=== PATIENT | male | born 1990 | race Caucasian/White ===

== ENCOUNTER 2016-07-25 14:20 | Emergency (ER) | payer OTHER ==
[~2016-07-25] VITALS: Ht 193 cm; Wt 80.3 kg
--- NOTE | 2016-07-25 15:17 | ED PSYCHIATRIC COMPLAINT ---
History of Present Illness General Chief Complaint: Psychiatric Related Complaint Stated Complaint: SI Source: patient, family, old records Exam Limitations: clinical condition Vital Signs & Intake/Output Vital Signs & Intake/Output Vital Signs Date Time Temp Pulse Resp B/P Pulse O2 O2 Flow FiO2 Ox Delivery Rate 07/25 1432 98.6 85 18 137/80 98 Room Air Allergies Coded Allergies: No Known Allergies (07/25/16) Reconcile Medications Cetirizine HCl (Zyrtec) (Unknown Strength) TABLET (Unknown Dose) PRN PRN ALLERGIES (Reported) Melatonin (Unknown Strength) TABLET (Unknown Dose) QPM SLEEP (Reported) Sertraline HCl (Zoloft) 100 MG TABLET 1 TAB PO DAILY MENTAL HEALTH (Reported) Triage Note: RECEIVED 25 YO MALE WITH HX OF AUTISM WITH FATHER. ACCORDING TO FATHER, PT HAS BEEN DEPRESSED FOR A FEW MONTHS AND MADE A SUICIDE STATEMENT A FEW WEEKS AGO AND MADE A SUICIDAL STATEMENT YESTERDAY TO ASSOCIATE AT [facility]. PT DENIES WANTING TO , DIRECTLY EXPRESSED BY PT. Triage Nurses Notes Reviewed? yes Onset: several months Duration: week(s):, constant, continues in ED Timing: recent history Severity: moderate Associated Symptoms: anxiety, impaired concentration, injury HPI: Several is prior to admission patient has had decreased appetite increasing sleep anhedonia and sleep disturbance. Several days prior to admission patient has had thoughts of hurting himself because of family discord and feels responsible. He denies fever chills nausea vomiting diarrhea abdominal pain chest pain shortness breath headache dysuria rash bleeding suicidal ideation homicidal ideation hallucination. (ADRIANA HANSON MD) Past History Travel History Traveled to [place] past 21 day No Medical History Any Pertinent Medical History? see below for history Neurological: NONE EENT: NONE Cardiovascular: NONE Respiratory: NONE Gastrointestinal: NONE Hepatic: NONE Renal: NONE Musculoskeletal: NONE Psychiatric: AUTISM Endocrine: NONE Blood Disorders: NONE Cancer(s): NONE Surgical History Surgical History: non-contributory Psychosocial History What is your primary language Mexican Tobacco Use: Never used Family History Hx Contributory? No (ADRIANA HANSON MD) Review of Systems Review of Systems Constitutional: Reports: no symptoms. EENTM: Reports: no symptoms. Respiratory: Reports: no symptoms. Cardiovascular: Reports: no symptoms. GI: Reports: no symptoms. Genitourinary: Reports: no symptoms. Musculoskeletal: Reports: no symptoms. Skin: Reports: no symptoms. Neurological/Psychological: Reports: see HPI, anxiety, cognitive dysfunction, confusion, depressed, emotional problems. Hematologic/Endocrine: Reports: no symptoms. Immunologic/Allergic: Reports: no symptoms. All Other Systems: Reviewed and Negative (ADRIANA HANSON MD) Physical Exam Physical Exam General Appearance: well developed/nourished, alert, awake, anxious, mild distress Head: atraumatic Eyes: Bilateral: PERRL, EOMI. Ears, Nose, Throat: normal pharynx, normal ENT inspection, hearing grossly normal Neck: normal inspection, supple Respiratory: normal breath sounds Cardiovascular: regular rate/rhythm Gastrointestinal: soft, non-tender Extremities: normal range of motion Neurological/Psychiatric: no motor/sensory deficits, awake, alert, normal mood/ affect, anxious, algologist II-XII nml as tested, oriented x 3 Appearance/Memory/Insight: disheveled, impaired insight Behavoir/Eye Contact/Speech: cooperative, normal speech Thoughts/Hallucinations: no apparent hallucination Skin: intact, normal color, warm/dry SAD PERSONS Done? patient not suicidal (ADRIANA HANSON MD) Progress Differential Diagnosis: drug intoxication, drug overdose, drug withdrawal, electrolyte abnormality, hypoglycemia Plan of Care: Orders Procedure Date/time Status Regular Diet 07/25 D Active Patient Safety Monitor 07/25 145 Active URINE DRUG SCREEN FOR ER ONLY 07/25 145 Complete ETHANOL 07/25 145 Complete COMPREHENSIVE METABOLIC PANEL 07/25 145 Complete CBC WITHOUT DIFFERENTIAL 07/25 145 Complete ED CRISIS PSYCH CONSULT 07/25 1457 Active Laboratory Tests 07/25/16 1543: Serum Alcohol < 10.0 07/25/16 1543: Anion Gap 10, Estimated GFR > 60, BUN/Creatinine Ratio 14.4, Glucose 83, Calcium 10.1, Total Bilirubin 0.7, AST 59, ALT 33, Alkaline Phosphatase 81, Total Protein 8.1, Albumin 4.8, Globulin 3.3, Albumin/Globulin Ratio 1.5, CBC w Diff MAN DIFF ORDERED, RBC 5.23, MCV 87.8, MCH 29.4, RDW 14.2, MPV 8.9, Gran % 71.4, Lymphocytes % 17.7 L, Monocytes % 7.1, Eosinophils % 3.4, Basophils % 0.4, Absolute Granulocytes 5.9, Segmented Neutrophils 62, Band Neutrophils 1, Absolute Lymphocytes 1.5, Lymphocytes 23, Monocytes 9, Absolute Monocytes 0.6, Eosinophils 5, Absolute Eosinophils 0.3, Absolute Basophils 0, Platelet Estimate ADEQUATE, Normocytic RBCs VERIFIED, Normochromic RBCs VERIFIED, PUBS MCHC 33.5, Urine Opiates Screen < 100.00, Methadone Screen < 40, Barbiturate Screen < 60, Ur Phencyclidine Scrn < 6.00, Amphetamines Screen < 100, U Benzodiazepines Scrn < 85, Urine Cocaine Screen < 50, Urine Cannabis Screen < 5.00 7:10 PM Patient signed out to me by Dr. Hanson. Pending crisis evaluation and disposition. 7:43 PM Patient seen and cleared by Quinn for discharge home. His father was given a list of outpatient counselling services. Diagnosis is depression and adjustment disorder. (LANRE OVALLE MD) Hand-Off Endorsed To: LANRE OVALLE MD Endorsed Time: 1899 Pending: consult (likely discharge) (ADRIANA HANSON MD) Departure Departure Condition: Stable Referrals: DESTINY PACE,FATUMA Penn (PCP/Family) Additional Instructions: Follow up with the recommendations of the workers' compensation commissioner Departure Forms: Customer Survey General Discharge Information (ADRIANA HANSON MD) Departure Time of Disposition: 1944 Disposition: HOME OR SELF CARE Clinical Impression Primary Impression: Depression Qualifiers: Depression Type: unspecified Qualified Code: F32.9 - Major depressive disorder, single episode, unspecified Secondary Impressions: Adjustment disorder (LANRE OVALLE MD)
[2016-07-25] MEDS ORDERED: ZYRTEC10 M3 (15:47)
[2016-07-25] MEDS ORDERED: ZOLOFT100 M1 PO (15:47)
[2016-07-25] MEDS ORDERED: MELATONIN3 M4 (15:47)
[2016-07-25 15:55] LABS: ABSOLUTE BASOPHIL COUNT 0 /CUMM (0.0-0.2); ABSOLUTE EOSINOPHIL COUNT 0.3 /CUMM (0.0-0.7); ABSOLUTE GRANULOCYTE CT 5.9 /CUMM (1.4-6.5); ABSOLUTE LYMPH COUNT 1.5 /CUMM (1.2-3.4); ABSOLUTE MONOCYTE COUNT 0.6 /CUMM (0.10-0.60); BASOPHIL % 0.4 % (0.0-2.0); EOSINOPHIL % 3.4 % (0-5); GRANULOCYTE % 71.4 % (42.2-75.2); HEMATOCRIT 45.9 % (42-52); MEAN CORPUSCULAR HGB 29.4 PG (27.0-31.0); MEAN CORPUSCULAR HGB CONC 33.5 G/DL (33.0-37.0); MEAN CORPUSCULAR VOLUME 87.8 FL (80.0-94.0); MEAN PLATELET VOLUME 8.9 FL (7.4-10.4); PLATELET COUNT 231 /CUMM (130-400); RBC DISTRIBUTION WIDTH 14.2 % (11.5-14.5); RED BLOOD CELL CT 5.23 /CUMM (4.70-6.10); WHITE BLOOD CELL COUNT 8.3 /CUMM (4.8-10.8)
--- NOTE | 2016-07-25 18:04 | ED PSYCH CRISIS CONSULTATION ---
Crisis Consult Basic Assessment Date of Consult: 07/25/16 Responsible Person/Accompanied By: Self/Father Hamlet Ríos Insurance Authorization: Insurance #1: Insurance name: SUMAN ESPARZA Phone number: Policy number: [id number] Group number: [id number] Authorization number: ED Provider: Patient's ED Provider: ADRIANA HANSON MD Primary Care Physician: Patient's PCP: FATUMA DIXON MD PCP's Current Psychiatrist: Ines Strong MD Chief Complaint: Psychiatric Related Complaint Patient's Quote: "I said I might hurt myself". Present Illness: Pt is a 25 year old single male brought to the ED by his father Hamlet Ríos. Pt is diagnosed with Autism & Intellectual Disability. When pt was asked, how are you feeling "A little down". Pt states that yesterday he was at the [facility] in [place] and he told the [facility] staff that he "might hurt himself". Pt was not able to articular how he might hurt himself. He he does not verbalize an intent to . Pt was alert and oriented x3. His speech pressured, mood calm with the statment I"m feeling a little down". Pt had a difficult time describing his feeling, he apparently does not have the vocabulary. According to his father the pt is functioning as fourth grader or a [age] year old, due to his Autism. Hamlet Ríos, father reports pt has not been hospitalized for psychiatric admission "ever". Pt was hospitalized at [facility]'s department at age 11 for neurological reasons. Pt at that time had been exhibiting difficulties in school, with some behavioral problems. While in the hospital, the pt became physically aggressive and had to be restrained, it took multiple staff to manage him. Current the pt is treated for Depression with Zoloft 100mgs by his PCP Dr. Dixon. Pt has never been to a psychiatrist for treatment. Currently, Hamlet Ríos is reporting that he has noticed a change in the pt's mood and behaviors. "He is not eating" he has lost weight. He is 6' 4" and he weighs 177lbs. he is not sleeping Mr. Ríos states for the past week his behaviors has been erratic with angry outburst. The pt called the police this past week because he was upset about his parents arguing. Father reports pt has been manic, hyperactive, running around the yard aimlessly, at time giggling to himself and talking to himself. Mr. Ríos report a family history of mental illness and is questioning his son' s diagnosis of autism. Mr. Ríos reports his the pt's mother is clinically depressed, pt's maternall grandmother was diagnosed with Paranoid Schizophrenia. Pt's paternal grandfather killed himself as a result of mental illness he had a diagnosis of Bipolar Disorder. Mr. Ríos report that the home environment has changed because he is going through a divorce with the pt's mother at this time, but they continue to live in the same home. Moreover, the pt is present during a lot of the arguments between his parents and so the home environment is unstable. Pt's reponse to his stressful situation is "there is a lot of negativity at home, I'm just gonna have to pray to get through them arguing all the time". Mr. Ríos states he just wants to get his son away from his whom Mr. Ríos believes is having mental health break down herself. Dr. Alex recommended a saftey plan be develp for the pt to feel safe in his home environment. Dr. Alex felt is would be very destabilizing for he pt to be in the ED hallway particularly because of his diagnoses of autism spectrum. She also felt the pt was responding to the change in his home environment with the parents constant aguing in his presence as they go through a divorce and living together. Patient's Address: [address] [place] [address] Other Phone Number: Who Do You Live With? Family Family/Informants Interviewed: Face to face meeting with Hamlet Ríos. Asking for pt to be evaluated for mental health diagnosis instead of Autism & intellectual disablity diagnosis that he currently has. Admits he is fight and arguing with his at home which has destabilized his son. Allergies - Coded Allergies: No Known Allergies (07/25/16) Current Medications - Scheduled Medications Melatonin (Unknown Strength) TABLET (Unknown Dose) QPM SLEEP (Reported) Entered as Reported by GRICELDA SANTILLAN on 07/25/161546 Sertraline HCl (Zoloft) 100 MG TABLET 1 TAB PO DAILY MENTAL HEALTH (Reported) Entered as Reported by GRICELDA SANTILLAN on 07/25/161546 Scheduled PRN Medications Cetirizine HCl (Zyrtec) (Unknown Strength) TABLET (Unknown Dose) PRN PRN ALLERGIES (Reported) Entered as Reported by GRICELDA SANTILLAN on 07/25/161546 Laboratory Results: Laboratory Tests 07/25/161542: Serum Alcohol < 10.0 07/25/161542: Anion Gap 10, Estimated GFR > 60, BUN/Creatinine Ratio 14.4, Glucose 83, Calcium 10.1, Total Bilirubin 0.7, AST 59, ALT 33, Alkaline Phosphatase 81, Total Protein 8.1, Albumin 4.8, Globulin 3.3, Albumin/Globulin Ratio 1.5, CBC w Diff MAN DIFF ORDERED, RBC 5.23, MCV 87.8, MCH 29.4, RDW 14.2, MPV 8.9, Gran % 71.4, Lymphocytes % 17.7 L, Monocytes % 7.1, Eosinophils % 3.4, Basophils % 0.4, Absolute Granulocytes 5.9, Segmented Neutrophils 62, Band Neutrophils 1, Absolute Lymphocytes 1.5, Lymphocytes 23, Monocytes 9, Absolute Monocytes 0.6, Eosinophils 5, Absolute Eosinophils 0.3, Absolute Basophils 0, Platelet Estimate ADEQUATE, Normocytic RBCs VERIFIED, Normochromic RBCs VERIFIED, PUBS MCHC 33.5, Urine Opiates Screen < 100.00, Methadone Screen < 40, Barbiturate Screen < 60, Ur Phencyclidine Scrn < 6.00, Amphetamines Screen < 100, U Benzodiazepines Scrn < 85, Urine Cocaine Screen < 50, Urine Cannabis Screen < 5.00 Past History Past Medical History Neurological: NONE EENT: NONE Cardiovascular: NONE Respiratory: NONE Gastrointestinal: NONE Hepatic: NONE Renal: NONE Musculoskeletal: NONE Psychiatric: depression, AUTISM Endocrine: NONE Blood Disorders: NONE Cancer(s): NONE Past Surgical History Surgical History: non-contributory Psychosocial History Strengths/Capabilities: Supportive father and paternal aunt was present with pt and provided pt's mental health history. Pt enjoys playing basketball and uses it as a coping skill. Physical Limitations (Interventions): None Psychiatric Treatment History Psych Treatment Psychiatric Treatment Yes Inpatient Treatment No Outpatient Treatment No Location of Treatment N/A Reason for Treatment n/a Dates of Treatment n/a Response to Treatment n/a Diagnosis by History: Depression Substance Use/Abuse History Drug Use/Abuse Substances Used/Abused No First Use n/a Last Used n/a How much used/taken n/a How often n/a For how long n/a Route of use n/a Substance Abuse Treatment Substance Abuse Treatment Past Substance Abuse [place] No Inpatient Treatment No Outpatient Treatment No Location of Treatment n/a Reason for Treatment n/a Dates of Treatment n/a Response to Treatment n/a Comments: n/a Current Mental Status Mental Status Orientation: Person, Place, Situation Affect: Flat, Lonely, Sad Speech: Pressured Neuro-vegetative: Appetite Decreased, Concentration Poor, Sleep Disturbance Appearance Appearance- Dress/Hygiene: Clean Behaviors Thought Process: Disorganized Thought Content: WNL Memory: WNL Insight: Poor SI/HI Risk Assessment Past Suicidal Ideation/Attempts No Current Suicidal Ideation/Att No Past Homicidal Ideation/Att: No Current Homicidal Ideation/Attempts No Degree of Intent: None Danger To: N/A Gravely Disabled: Lack of Insight, Poor Impulse Control Risk Factors: high anxiety/distress, poor impulse control, male, limited support Lethality Rating: n/a (No hx of attempts or SI) PTSD Checklist PTSD Done? pt unable to participate ED Management Sitter: No Restraints: No DSM5/PS Stressors/Medical Prob Diagnosis' (DSM 5, Stressors, Medical): F32.9 Depressive Disorder Unspecified,F71 Intellectual Disability Moderate F84.0 Autism Spectrum Disorder Level 2, Z62.820 Parent Child Relational Problems Current GAF: 30 Departure Disposition Psych Medical Clearance Date: 07/25/16 Medically Cleared at: 0251 Time Started: 514 Time Ended: 614 Psychiatrist Consulted: Tae PACE, Ines Date Disposition Established: 07/25/16 Time Disposition Established: 614 Plan for Disposition - Modality: Outpatient Facility: Patient to Arrange Follow-up Appt Date: 07/27/16 Contact: psychiatric Crisis lisist Telephone: See referral list Rationale for Disposition: Pt denied SI/HI, no evidence of psychosis. Pt did not meet criteria for inpatient hosptial admission. Pt's father was given Referral list for outpatient providers. Referrals DESTINY PACE,FATUMA Penn (PCP/Family)
[2016-07-25 19:49] VITALS: BP 135/60
== END 2016-07-25 19:54 ==
LOC: ERH 14:20
PROVIDERS: Emergency Medicine
DX: F32.9 Major depressive disorder, single episode, unspecified (principal); F43.20 Adjustment disorder, unspecified
CPT/HCPCS: 80307; G0463; G0480